=== PATIENT | male | born 2005 | race Caucasian/White ===

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

== ENCOUNTER 2025-02-12 21:46 | Emergency (ER) | payer OTHER ==
[2025-02-12 21:54] VITALS: BP 116/69; PULSE 94; RESP 18; TEMP 98; BMI 19.7
[2025-02-12] MEDS ORDERED: ACETAMINOPHEN 325 MG TABLET (FP) ONE (22:32)
[2025-02-12] MEDS ORDERED: DIPHTH,PERTUSS(ACELL),TET 0.5 ML DISP.SYRIN IM ONE (22:33)
[2025-02-12] MEDS: DIPHTH,PERTUSS(ACELL),TET 0.5 ML DISP.SYRIN IM ONE (22:44)
[2025-02-12] MEDS: ACETAMINOPHEN 325 MG TABLET (FP) PO ONE (22:45)
[2025-02-13] MEDS: BACITRACIN ZINC 15 GM TUBE TOPICAL OINTMENT TP ONE (00:35)
== END 2025-02-13 00:50 | disposition home or self-care (01) ==
LOC: JER 21:46
PROC: 0HQFXZZ Repair Right Hand Skin, External Approach (ICD-10-PCS; principal; 2025-02-12)
PROC: 3E0234Z Introduction of Serum, Toxoid and Vaccine into Muscle, Percutaneous Approach (ICD-10-PCS; 2025-02-12)
DX: S61.211A Laceration without foreign body of left index finger without damage to nail, initial encounter (principal); Z23 Encounter for immunization; W25.XXXA Contact with sharp glass, initial encounter; Y99.0 Civilian activity done for income or pay
CPT/HCPCS: 73130-TC-LT-FY; 90715; 99284-25